=== PATIENT | male | born 1995 | race Caucasian/White ===

== ENCOUNTER 2016-10-16 09:39 | Emergency (ER) | payer OTHER ==
[~2016-10-16] VITALS: Ht 170.2 cm; Wt 92.0 kg
[2016-10-16 09:48] VITALS: TEMP 36.6; Ht 170.2 cm; Wt 92.0 kg
[2016-10-16] MEDS ORDERED: SERT25TA PO (10:22)
--- NOTE | 2016-10-16 10:52 | EMERGENCY ROOM VISIT NOTE ---
ED Visit Note First contact with patient: 09:54 CHIEF COMPLAINT: Head injury HISTORY OF PRESENT ILLNESS: This 21-year-old male patient presented to the emergency department ambulatory after receiving a head injury last night after he was struck multiple times in the head with a hockey puck. 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 He did not fall to the ground. He states that he has had a headache, dizziness and nausea since then. The patient states the headache developed afterwards and he rates his discomfort a 7 /10. The patient also reports light sensitivity. He states he has had head injuries in the past but was never formally evaluated. The patient states that he used to get daily headaches in high school but was never evaluated for them. He has never had imaging of his brain. There was no brief loss of consciousness or vomiting. No difficulty with speech. The headache has been moderate. The patient complains of no neck pain. No loss of apetite or unusual behavior since the injury. The patient has taken nothing for the pain. The patient rates the pain as 7/10 and moderate. The patient denies any changes in their vision or hearing. The patient denies bowel or bladder dysfunction. The patient denies abdominal pain. REVIEW OF SYSTEMS: A 6 system review of systems was completed with positives and pertinent negatives listed in the HPI. ALLERGIES: Amoxicillin MEDICATIONS: None PMH: None SOCIAL HISTORY: The patient lives locally PHYSICAL EXAM: Vital Signs: Reviewed Nurse's notes, vital signs stable. GENERAL : This is a 21-year-old male, in no acute distress, well-developed, well- nourished. NEURO: The patient is alert, oriented to person place and time, and coherent. Normal mini mental status exam. Negative Romberg and pronator drift. Cerebellar function intact. HEAD: Normocephalic and atraumatic. EYES: Pupils are equal round and reactive to light and accommodation. EOMs are full and optic discs and fundi are normal. There is no swelling or discoloration of the tissue surrounding the eyes. EARS: External auditory canals clear without blood. NOSE: Patent without tenderness. No septal hematoma. FACE: No facial tenderness. NECK: Supple. There is no cervical spine tenderness. The patient does not have tenderness with movement of the neck. ED COURSE: I examined the patient. Given the patient's history of headaches and no formal evaluation as well as having head injury yesterday with headache and nausea, a CT scan of the brain was obtained. There is no evidence for intracranial bleeding, skull fracture, mass. The patient was given instructions for potential concussion and follow-up with the concussion clinic. He should rest and return to the ER with any worsening symptoms. The patient was discharged home in good condition ambulatory. HEAD CT NONCONTRAST CT DOSE: 788.63 mGycm HISTORY: Trauma head injury TECHNIQUE: Multiaxial CT images of the head were performed without the use of intravenous contrast. Comparison: None. Findings: The paranasal sinuses and mastoid air cells are clear. The calvarium and skull base are intact. The ventricles and sulci are within normal limits. There is no mass, hematoma, midline shift, or acute infarct. Impression: No acute intracranial abnormality. Current/Historical Medications Scheduled Sertraline (Zoloft), 25 MG PO DAILY Allergies Coded Allergies: Amoxicillin (Unverified Allergy, Unknown, UNKNOWN, 10/16/16) Vital Signs Date Time Temp Pulse Resp B/P Pulse Ox O2 Delivery O2 Flow Rate FiO2 10/16/16 11:55 71 18 131/83 100 Room Air 10/16/16 09:48 36.6 72 16 140/99 98 Room Air Departure Information Impression Primary Impression: Closed head injury Dispostion Home / Self-Care Condition GOOD Referrals No Doctor, Assigned (PCP) Patient Instructions Concussion, My [facility] Additional Instructions Motrin 600 mg every 6-8 hours for moderate pain Rest Return with any worsening symptoms Contact the concussion clinic at [facility] sports [facility] ([phone]) to schedule a follow-up appointment for further evaluation and management. Their office is located at [address] [place] [address]. [address] No gym or athletics for one week after symptoms resolve Problem Qualifiers Primary Impression: Closed head injury Encounter type: initial encounter Qualified Codes: S09.90XA - Unspecified injury of head, initial encounter
--- NOTE | 2016-10-16 11:20 | DIAGNOSTIC IMAGING REPORT ---
HEAD CT NONCONTRAST CT DOSE: 788.63 mGycm HISTORY: Trauma head injury TECHNIQUE: Multiaxial CT images of the head were performed without the use of intravenous contrast. Comparison: None. Findings: The paranasal sinuses and mastoid air cells are clear. The calvarium and skull base are intact. The ventricles and sulci are within normal limits. There is no mass, hematoma, midline shift, or acute infarct. Impression: No acute intracranial abnormality. Electronically signed by: Terrell Linn M.D. 10/16/2016 11:18 AM Dictated Date/Time: 10/16/2016 11:15 AM
[2016-10-16 11:55] VITALS: BP 131/83; PULSE 71; O2SAT 100
== END 2016-10-16 12:11 | disposition home or self-care (01) ==
LOC: C.EDB 09:42 → C.EDA 12:11
DX: S09.90XA Unspecified injury of head, initial encounter (principal); W22.8XXA Striking against or struck by other objects, initial encounter; Y93.65 Activity, lacrosse and field hockey; Z79.899 Other long term (current) drug therapy; Z88.1 Allergy status to other antibiotic agents